=== PATIENT | male | born 1970 | race Caucasian/White ===

== ENCOUNTER 2022-09-17 04:04 | Day surgery (SDC) | payer OTHER ==
[~2022-09-17] VITALS: Ht 177.8 cm; Wt 89.2 kg
[2022-09-17] VITALS (254 sets, daily range): BP systolic 80–150; BP diastolic 42–95
[2022-09-17 07:42] LABS: BASO% 0.3 % (0-3); EOS% 1.4 % (0-8); HEMATOCRIT 38.1 % (39.0-50.0); HEMOGLOBIN 13.7 g/dl (14.0-18.0); IMMATURE GRANULOCYTES 0.3 % (0.0-5.0); LYMPH% 14.4 % (15-41); MEAN CELL VOLUME 84.7 fL CALC (80.0-100.0); MEAN CORPUSCULAR HGB 30.4 pG CALC (26.0-32.0); MONO% 10.8 % (2-13); NEUT# 4.59 thou/uL (1.82-7.42); NEUT% 72.8 % (42-76); RED BLOOD COUNT 4.5 mill/uL (4.70-6.10); RED CELL DISTRI WIDTH 12.7 % (11.5-15.5)
[2022-09-17 08:00] LABS: ALBUMIN 4.5 g/dL (3.2-5.0); ALKALINE PHOSPHATASE 50 u/l (38-126); ANION GAP 10 (6-22 (CALC)); BILIRUBIN, TOTAL 1.1 mg/dL (0.0-1.4); BUN 11 mg/dL (9-20); BUN/CREATININE RATIO 13 (12-20 (CALC)); CARBON DIOXIDE 30 mmol/l (22-30); CHLORIDE 103 mmol/l (95-108); CREATININE 0.8 mg/dL (0.7-1.3); GFR FOR AFR.AMER. > 60 ML/MIN (>=60 (CALC)); GFR OTHER RACES > 60 ML/MIN (>=60 (CALC)); POTASSIUM 4.1 mmol/l (3.5-5.1); SGOT/AST 43 u/l (17-59); SODIUM 137 mmol/l (137-146)
[2022-09-17] MEDS ORDERED: NALTREXONE50 MG PO (14:30)
[2022-09-17] MEDS ORDERED: KLONOPIN2 MG PO (14:33)
[2022-09-17] MEDS ORDERED: CLONIDINE0.1 MG PO (14:33)
[2022-09-18 03:02] VITALS: BP 135/87
[2022-09-18 05:51] LABS: BASO% 0.1 % (0-3); HEMATOCRIT 37.4 % (39.0-50.0); HEMOGLOBIN 13.4 g/dl (14.0-18.0); IMMATURE GRANULOCYTES 0.4 % (0.0-5.0); LYMPH% 5.5 % (15-41); MEAN CELL VOLUME 82.2 fL CALC (80.0-100.0); MEAN CORPUSCULAR HGB 29.5 pG CALC (26.0-32.0); MEAN CORPUSCULAR HGB CONC 35.8 g/dL CAL (32.0-36.0); MONO% 1.7 % (2-13); NEUT# 10.94 thou/uL (1.82-7.42); NEUT% 92.3 % (42-76); RED BLOOD COUNT 4.55 mill/uL (4.70-6.10); RED CELL DISTRI WIDTH 12.5 % (11.5-15.5)
[2022-09-18 06:08] VITALS: BP 131/73
[2022-09-18 06:15] LABS: ALBUMIN 4.4 g/dL (3.2-5.0); ALKALINE PHOSPHATASE 51 u/l (38-126); ANION GAP 12 (6-22 (CALC)); BILIRUBIN, TOTAL 1.3 mg/dL (0.0-1.4); BUN 11 mg/dL (9-20); BUN/CREATININE RATIO 13 (12-20 (CALC)); CARBON DIOXIDE 25 mmol/l (22-30); CHLORIDE 104 mmol/l (95-108); CREATININE 0.8 mg/dL (0.7-1.3); GFR FOR AFR.AMER. > 60 ML/MIN (>=60 (CALC)); GFR OTHER RACES > 60 ML/MIN (>=60 (CALC)); POTASSIUM 3.6 mmol/l (3.5-5.1); SGOT/AST 37 u/l (17-59); SODIUM 137 mmol/l (137-146)
[2022-09-18 08:55] VITALS: BP 125/70
[2022-09-18 10:31] VITALS: BP 123/70
[2022-09-18 11:53] VITALS: BP 116/75
== END 2022-09-18 15:10 | disposition home or self-care (01) | DRG 897 ==
LOC: ANR 04:04 → MS2 04:13 → ANR 09:00
PROVIDERS: ATTEND Anesthesiology Critical Care Medicine
DX: F11.20 Opioid dependence, uncomplicated (principal)
CPT/HCPCS: J0131; J2060; J2354; J3475